=== PATIENT | male | born 1985 | race Caucasian/White ===

== ENCOUNTER 2016-07-15 13:15 | Emergency (ER) | payer BC ==
[~2016-07-15] VITALS: Ht 182.8 cm; Wt 68.0 kg
[~2016-07-15 13:15] MED LIST: ACULAR 0.5%3 ML OPH; AMOXIL500 MG PO; CLARITIN10 MG PO; COMPAZINE10 MG PO; FLEXERIL10 MG PO; IBU-8800 MG PO; NAPROSYN500 MG PO; NO DAILY MEDS; PROVENTIL0.09 MG/AC IH; TOBREX OPHTH S2.5 ML OPH; TRIMOX500 MG PO; VICODIN 5/500 505 MG PO; ZITHROMAX Z PA250 MG PO
[2016-07-15] MEDS ORDERED: Motrin,Rufen800 MG PO (14:17)
== END 2016-07-15 14:52 | disposition home or self-care (01) ==
LOC: ED 13:15
DX: S92.424A Nondisplaced fracture of distal phalanx of right great toe, initial encounter for closed fracture (principal); F17.200 Nicotine dependence, unspecified, uncomplicated; W20.8XXA Other cause of strike by thrown, projected or falling object, initial encounter; Y93.89 Activity, other specified; Y92.89 Other specified places as the place of occurrence of the external cause; Y99.9 Unspecified external cause status

== ENCOUNTER 2022-08-25 13:04 | Emergency (ER) | payer OTHER ==
[~2022-08-25] VITALS: Ht 182.8 cm; Wt 72.6 kg
[~2022-08-25 13:04] MED LIST changes: +Motrin,Rufen800 MG PO
[2022-08-25] MEDS ORDERED: OFLOXACIN OT (15:17)
[2022-08-25] MEDS ORDERED: DEBROX15 ML OT (15:17)
== END 2022-08-25 15:23 | disposition home or self-care (01) ==
LOC: ED 13:04
DX: H61.23 Impacted cerumen, bilateral (principal); H60.93 Unspecified otitis externa, bilateral; Z79.899 Other long term (current) drug therapy

== ENCOUNTER 2024-12-04 16:24 | Emergency (ER) | payer MEDICAID ==
[~2024-12-04] VITALS: Wt 72.6 kg
[~2024-12-04 16:24] MED LIST changes: +DEBROX15 ML OT; +OFLOXACIN OT
[2024-12-04] MEDS ORDERED: AVPAK AZITHROM250 MG PO (18:07)
== END 2024-12-04 18:12 | disposition home or self-care (01) ==
LOC: ED 16:24
DX: J32.9 Chronic sinusitis, unspecified (principal); Z20.822 Contact with and (suspected) exposure to COVID-19

== ENCOUNTER 2025-02-16 10:57 | Emergency (ER) | payer MEDICAID ==
[~2025-02-16] VITALS: Ht 182.8 cm
[~2025-02-16 10:57] MED LIST changes: +AVPAK AZITHROM250 MG PO
[2025-02-16] MEDS ORDERED: Acetaminophen/Hydrocodone 5 MG/325 MG TABLET PO ONE (12:20)
[2025-02-16] MEDS ORDERED: NAPROSYN500 MG PO (12:49)
== END 2025-02-16 12:54 | disposition home or self-care (01) ==
LOC: ED 10:57
DX: S40.011A Contusion of right shoulder, initial encounter (principal); W18.39XA Other fall on same level, initial encounter; Y93.89 Activity, other specified; Y92.89 Other specified places as the place of occurrence of the external cause; Y99.8 Other external cause status